=== PATIENT | female | born 1970 | race American Indian/Alaskan Native ===

== ENCOUNTER 2022-04-14 16:24 | Emergency (ER) | payer MEDICARE, MEDICAID ==
[2022-04-15] MEDS ORDERED: SODIUM CHLORIDE 0.9% 1000 ML 1,000 ML IV ONE (07:51)
[2022-04-15 08:52] LABS: Hematocrit 31.4 % (30.3-42.9); Hemoglobin 10.6 gm/dl (10.1-14.3); Mean Corpuscular HGB Conc 34 % (30-34); Mean Corpuscular Volume 94 fl (79-97); Platelet Count 309 K/mm3 (140-440); Red Blood Count 3.33 M/mm3 (3.65-5.03); Red Cell Distribution Width 14.2 % (13.2-15.2)
[2022-04-15 09:19] LABS: Albumin 3.6 g/dL (3.9-5); Calcium 7.6 mg/dL (8.4-10.2)
--- NOTE | 2022-04-15 10:27 | Ultrasound Report ---
ULTRASOUND ABDOMEN, COMPLETE INDICATION / CLINICAL INFORMATION: richardson. COMPARISON: None available. FINDINGS: PANCREAS: No significant abnormality. ABDOMINAL AORTA: No significant abnormality. IVC: No significant abnormality. LIVER: No significant abnormality. Normal hepatopedal blood flow in the main portal vein. GALLBLADDER: No significant abnormality. BILE DUCTS: No significant abnormality. Common bile duct measures 1-2 mm. KIDNEYS: Right: 7.5 cm in length with cortical thinning. Left: 6.9 cm in length with cortical thinni ng. SPLEEN: No significant abnormality. FREE FLUID: None. ADDITIONAL FINDINGS: None. IMPRESSION: 1. No acute findings. 2. Kidneys are small/atrophic. Signer Name: Sunny Stevens MD Signed: 04/15/2022 10:22 AM Workstation Name: [id number]
[2022-04-15] MEDS ORDERED: ONDANSETRON 4 MG/2 ML INJ IV ONE (11:08)
[2022-04-15] MEDS ORDERED: MORPHINE 4 MG/1 ML INJ IV ONE (11:08)
[2022-04-15] MEDS ORDERED: DICYCLOMINE 20 MG/2 ML INJ IM ONE (11:11)
--- NOTE | 2022-04-15 11:12 | Emergency Department Report ---
ED Abdominal Pain HPI - General Chief Complaint: Abdominal Pain Stated Complaint: ABD PAIN X 1 MONTH Time Seen by Provider: 04/15/22 11:08 Source: EMS Mode of arrival: Stretcher Limitations: No Limitations - History of Present Illness Initial Comments: 51-year-old black female with a past medical history of hypertension, asthma, end-stage renal disease on PD daily, and depression presents to the emergency department for evaluation of 1 month history of abdominal pain. She states that she has a known history of gallstones for which she has been following up with her doctor at [facility] but states that she has some nausea and vomiting today so she decided to come in for further evaluation. She denies fever, dysuria, diarrhea, vaginal discharge, and sick contacts. MD Complaint: abdominal pain -: month(s) (1) Location: RUQ Radiation: none Migration to: no migration Severity scale (0 -10): 5 Quality: aching Consistency: intermittent Associated Symptoms: nausea, vomiting. denies: diarrhea, fever, chills, dysuria, hematemesis, hematochezia, melena, hematuria, anorexia, syncope - Related Data Previous Rx's Medication Instructions Recorded Last Taken Type Ondansetron [Zofran Odt] 4 mg PO Q8HR PRN #12 tab.rapdis 04/15/22 Unknown Rx Allergies Allergy/AdvReac Type Severity Reaction Status Date / Time No Known Allergies Allergy Verified 04/14/22 16:29 ED Review of Systems ROS: Stated complaint: ABD PAIN X 1 MONTH Other details as noted in HPI Comment: All other systems reviewed and negative Constitutional: denies: chills, fever Respiratory: denies: shortness of breath Cardiovascular: denies: chest pain, palpitations Gastrointestinal: abdominal pain, nausea, vomiting. denies: diarrhea, hematemesis, melena, hematochezia Genitourinary: denies: urgency, dysuria, frequency, hematuria, discharge, abnormal menses Musculoskeletal: denies: back pain Neurological: denies: headache, weakness ED Past Medical Hx - Past Medical History Previous Medical History?: Yes Additional medical history: gallstones - Medications Home Medications: Home Medications Medication Instructions Recorded Confirmed Last Taken Type Ondansetron [Zofran Odt] 4 mg PO Q8HR PRN #12 tab.rapdis 04/15/22 Unknown Rx ED Physical Exam - General Limitations: No Limitations General appearance: alert, in no apparent distress - Head Head exam: Present: atraumatic, normocephalic - Eye Eye exam: Present: normal appearance. Absent: conjunctival injection, periorbital swelling, periorbital tenderness - ENT ENT exam: Present: normal exam - Neck Neck exam: Present: normal inspection, full ROM. Absent: tenderness, lymphadenopathy - Respiratory Respiratory exam: Present: normal lung sounds bilaterally. Absent: respiratory distress, wheezes, rales, rhonchi, stridor, chest wall tenderness - Cardiovascular Cardiovascular Exam: Present: regular rate, normal heart sounds - GI/Abdominal GI/Abdominal exam: Present: soft, normal bowel sounds. Absent: distended, tenderness, guarding, rebound, rigid - Extremities Exam Extremities exam: Present: normal inspection, full ROM, normal capillary refill. Absent: tenderness, pedal edema, joint swelling, calf tenderness - Back Exam Back exam: Present: normal inspection. Absent: CVA tenderness (R), CVA tenderness (L), vertebral tenderness - Neurological Exam Neurological exam: Present: alert, oriented X3, CN II-XII intact, normal gait, reflexes normal. Absent: motor sensory deficit - Psychiatric Psychiatric exam: Present: normal affect, normal mood - Skin Skin exam: Present: warm, dry, intact, normal color ED Course Vital Signs 04/14/22 16:25 Temperature 99.0 F Pulse Rate 72 Respiratory 16 Rate Blood Pressure 170/82 [Left] O2 Sat by Pulse 72 L Oximetry ED Medical Decision Making - Lab Data Result diagrams: 04/15/22 08:27 04/15/22 08:27 - Radiology Data Radiology results: report reviewed, image reviewed Abdominal ultrasound: FINDINGS: PANCREAS: No significant abnormality. ABDOMINAL AORTA: No significant abnormality. IVC: No significant abnormality. LIVER: No significant abnormality. Normal hepatopedal blood flow in the main portal vein. GALLBLADDER: No significant abnormality. BILE DUCTS: No significant abnormality. Common bile duct measures 1-2 mm. KIDNEYS: Right: 7.5 cm in length with cortical thinning. Left: 6.9 cm in length with cortical thinning. SPLEEN: No significant abnormality. FREE FLUID: None. ADDITIONAL FINDINGS: None. IMPRESSION: 1. No acute findings. 2. Kidneys are small/atrophic. - Medical Decision Making 51-year-old black female with a past medical history of hypertension, asthma, end-stage renal disease on PD daily, and depression presents to the emergency department for evaluation of 1 month history of abdominal pain. She states that she has a known history of gallstones for which she has been following up with her doctor at [facility] but states that she has some nausea and vomiting today so she decided to come in for further evaluation. She denies fever, dysuria, diarrhea, vaginal discharge, and sick contacts. Physical exam unremarkable. Patient noted to have elevated BUN and creatinine but has history of CKD. She has mildly elevated alkaline phos. Gallbladder ultrasound unremarkable. Patient will be discharged home and advised to follow- up with her GI doctor as planned. She is advised to return to the emergency department as needed. Critical care attestation.: If time is entered above; I have spent that time in minutes in the direct care of this critically ill patient, excluding procedure time. ED Disposition Clinical Impression: Abdominal pain Qualifiers: Abdominal location: right upper quadrant Qualified Code(s): R10.11 - Right upper quadrant pain Disposition: 01 HOME / SELF CARE / HOMELESS Is pt being admited?: No Does the pt Need Aspirin: No Condition: Stable Instructions: Abdominal Pain (ED), Abdominal Pain, Adult, [id number] Additional Instructions: Take medications as prescribed. 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 Return to the emergency department as needed. Prescriptions: Ondansetron [Zofran Odt] 4 mg PO Q8HR PRN #12 tab.rapdis PRN Reason: Nausea And Vomiting Referrals: HEAVEN ENCISO MD [Staff Physician] - 3-5 Days THANG MYERS MD [Staff Physician] - 3-5 Days Forms: Work/School Release Form(ED) Time of Disposition: 11:31
[2022-04-15 12:15] VITALS: BP 148/78
== END 2022-04-15 12:15 | disposition home or self-care (01) ==
LOC: ED 16:24
DX: R10.9 Unspecified abdominal pain (principal)
CPT/HCPCS: 36415; 76700; 80053; 83690; 85027; 96372; 96374; 96375; 99284; J0500; J2270; J2405